=== PATIENT | female | born 1960 | race African-American/Black ===

== ENCOUNTER 2017-03-28 11:32 | Inpatient (IN) | payer OTHER ==
[2017-03-28 12:32] VITALS: BMI 29.2
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
[2017-03-28] MEDS ORDERED: NICOTINE POLACRILEX 4 MG GUM BUC PRN (14:24)
[2017-03-28] MEDS ORDERED: P-EPHED 60MG/TRIPROLIDI 2.5MG TABLET PO PRN (14:24)
[2017-03-28] MEDS ORDERED: guaiFENesin/D-METHORPHAN HB 10 ML UNIT-DOSE CUPS PO PRN (14:24)
[2017-03-28] MEDS ORDERED: ACETAMINOPHEN 325 MG TABLET (FP) PO PRN (14:24)
[2017-03-28] MEDS ORDERED: MAGNESIUM CITRATE 300 ML BOTTLE PO PRN (14:24)
[2017-03-28] MEDS ORDERED: MENTHOL/PHENOL 1 EACH UD MM PRN (14:24)
[2017-03-28] MEDS ORDERED: MAG HYDROX/AL HYDROX/SIMETH 30 ML UNIT-DOSE CUP PO PRN (14:24)
[2017-03-28] MEDS ORDERED: chlordiazePOXIDE HCL 25 MG CAPSULE PO PRN (14:24)
[2017-03-28] MEDS ORDERED: LOPERAMIDE HCL 2 MG CAPSULE PO PRN (14:24)
[2017-03-28] MEDS ORDERED: chlordiazePOXIDE HCL 25 MG CAPSULE PO ONE (15:07)
[2017-03-28 16:32] LABS: HEMATOCRIT 37.1 % (32.4-45.2); HEMOGLOBIN 12.6 GM/dL (10.7-15.3); MCH 32.7 pg (25.7-33.7); MCHC 33.9 g/dl (32.0-36.0); MEAN CELL VOLUME 96.4 fl (80-96); MEAN PLT VOLUME 10.1 fl (7.5-11.1); PLATELET COUNT 215 K/MM3 (134-434); RBC 3.85 M/mm3 (3.60-5.2); RDW 13.4 % (11.6-15.6); WHITE BLOOD COUNT 4.6 K/mm3 (4.0-10.0)
[2017-03-28 16:49] LABS: URINE APPEARANCE SLCLOUDY; URINE BILIRUBIN NEGATIVE (NEGATIVE); URINE BLOOD 1+ (NEGATIVE); URINE COLOR LTYELLOW; URINE GLUCOSE (UA) NEGATIVE (NEGATIVE); URINE KETONE NEGATIVE (NEGATIVE); URINE LEUK ESTERASE NEGATIVE (NEGATIVE); URINE NITRITE NEGATIVE (NEGATIVE); URINE PROTEIN NEGATIVE (NEGATIVE); URINE UROBILINOGEN NEGATIVE mg/dL (0.2-1.0)
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
[2017-03-28] MEDS: chlordiazePOXIDE HCL 25 MG CAPSULE PO SCH ×2 (17:25→22:35)
[2017-03-28] MEDS: LISINOPRIL 10 MG TABLET (FP) PO SCH (17:25)
[2017-03-28] MEDS: NICOTINE 21 MG/24 HOURS TOPICAL PATCH TD SCH (17:25)
[2017-03-28 17:28] LABS: CALCIUM OXALATE CRYSTALS RARE /hpf (NONE SEEN); EPI CELLS RARE /HPF (FEW); URINE BACTERIA RARE /hpf (NONE SEEN); URINE MUCUS RARE
[2017-03-28 20:10] LABS: ALBUMIN 3.5 g/dl (3.4-5.0); ANION GAP 7 (8-16); BLOOD UREA NITROGEN 27 mg/dL (7-18); CALCIUM 8.2 mg/dL (8.5-10.1); CHLORIDE 104 mmol/L (98-107); CO2 29 mmol/L (21-32); GLUCOSE,RANDOM 88 mg/dL (74-106); POTASSIUM 4.4 mmol/L (3.5-5.1); SODIUM 140 mmol/L (136-145)
[2017-03-28 20:14] LABS: ALK PHOS 73 U/L (45-117); BILIRUBIN,TOTAL 0.8 mg/dL (0.2-1.0); CREATININE 1.2 mg/dL (0.55-1.02); SGOT/AST 18 U/L (15-37); SGPT/ALT 28 U/L (12-78); TOT PROT 7.2 g/dl (6.4-8.2)
[2017-03-28] MEDS: THIAMINE HCL 100 MG TABLET (FP) PO SCH (22:35)
[2017-03-28] MEDS: NAPROXEN 500 MG TABLET (FP) PO PRN (22:35)
[2017-03-29] MEDS: chlordiazePOXIDE HCL 25 MG CAPSULE PO SCH ×4 (07:11→22:21)
--- NOTE | 2017-03-29 08:03 | EKG ---
Test Reason : Blood Pressure : / mmHG Vent. Rate : 069 BPM Atrial Rate : 069 BPM P-R Int : 200 ms QRS Dur : 096 ms QT Int : 436 ms P-R-T Axes : 059 063 072 degrees QTc Int : 467 ms NORMAL SINUS RHYTHM NORMAL ECG WHEN COMPARED WITH ECG OF 24-JAN-2015 08:28, NO SIGNIFICANT CHANGE WAS FOUND Confirmed by ALFREDITO ARAGON MD ([id number]) on 03/29/2017 8:03:19 AM Referred By: Confirmed By:ALFREDITO ARAGON MD
[2017-03-29] MEDS: METHADONE HCL 40 MG DISPERSABLE TABLET PO SCH (09:07)
--- NOTE | 2017-03-29 10:00 | PN ---
[facility] CIWA - CIWA Score Nausea/Vomitin-Mild Nausea/No Vomiting Muscle Tremors: 4-Moderate,w/Arms Extend Anxiety: 4-Mod. Anxious/Guarded Agitation: 4-Moderately Restless Paroxysmal Sweats: 1-Minimal Palms Moist Orientation: 0-Oriented Tacttile Disturbances: 0-None Auditory Disturbances: 0-None Visual Disturbances: 0-None Headache: 0-None Present CIWA-Ar Total Score: 14 BHS Progress Note (SOAP) Subjective: tremor anxiety sweat agitation Objective: 03/29/17 09:59 Vital Signs Temperature 98 F 03/29/17 06:24 Pulse Rate 66 03/29/17 06:24 Respiratory Rate 16 03/29/17 06:24 Blood Pressure 152/84 03/29/17 06:24 O2 Sat by Pulse Oximetry (%) Laboratory Last Values WBC 4.6 K/mm3 (4.0-10.0) D 03/28/17 14:30 RBC 3.85 M/mm3 (3.60-5.2) 03/28/17 14:30 Hgb 12.6 GM/dL (10.7-15.3) 03/28/17 14:30 Hct 37.1 % (32.4-45.2) 03/28/17 14:30 MCV 96.4 fl (80-96) H 03/28/17 14:30 MCH 32.7 pg (25.7-33.7) 03/28/17 14:30 MCHC 33.9 g/dl (32.0-36.0) 03/28/17 14:30 RDW 13.4 % (11.6-15.6) 03/28/17 14:30 Plt Count 215 K/MM3 (134-434) 03/28/17 14:30 MPV 10.1 fl (7.5-11.1) 03/28/17 14:30 Sodium 140 mmol/L (136-145) 03/28/17 14:30 Potassium 4.4 mmol/L (3.5-5.1) 03/28/17 14:30 Chloride 104 mmol/L (98-107) 03/28/17 14:30 Carbon Dioxide 29 mmol/L (21-32) 03/28/17 14:30 Anion Gap 7 (8-16) L 03/28/17 14:30 BUN 27 mg/dL (7-18) H 03/28/17 14:30 Creatinine 1.2 mg/dL (0.55-1.02) H 03/28/17 14:30 Creat Clearance w eGFR 46.64 (>60) 03/28/17 14:30 Random Glucose 88 mg/dL (74-106) 03/28/17 14:30 Calcium 8.2 mg/dL (8.5-10.1) L 03/28/17 14:30 Total Bilirubin 0.8 mg/dL (0.2-1.0) D 03/28/17 14:30 AST 18 U/L (15-37) 03/28/17 14:30 ALT 28 U/L (12-78) 03/28/17 14:30 Alkaline Phosphatase 73 U/L (45-117) 03/28/17 14:30 Total Protein 7.2 g/dl (6.4-8.2) 03/28/17 14:30 Albumin 3.5 g/dl (3.4-5.0) 03/28/17 14:30 Urine Color Ltyellow 03/28/17 15:30 Urine Appearance Slcloudy 03/28/17 15:30 Urine pH 5.0 (5.0-8.0) D 03/28/17 15:30 Ur Specific [place] 1.015 (1.001-1.035) 03/28/17 15:30 Urine Protein Negative (NEGATIVE) 03/28/17 15:30 Urine Glucose (UA) Negative (NEGATIVE) 03/28/17 15:30 Urine Ketones Negative (NEGATIVE) 03/28/17 15:30 Urine Blood 1+ (NEGATIVE) H 03/28/17 15:30 Urine Nitrite Negative (NEGATIVE) 03/28/17 15:30 Urine Bilirubin Negative (NEGATIVE) 03/28/17 15:30 Urine Urobilinogen Negative mg/dL (0.2-1.0) 03/28/17 15:30 Ur Leukocyte Esterase Negative (NEGATIVE) 03/28/17 15:30 Urine WBC (Auto) 1 /hpf (3-5) 03/28/17 15:30 Urine RBC (Auto) 2 /hpf (0-3) 03/28/17 15:30 Ur Epithelial Cells Rare /HPF (FEW) 03/28/17 15:30 Calcium Oxalate Crystal Rare /hpf (NONE SEEN) 03/28/17 15:30 Urine Bacteria Rare /hpf (NONE SEEN) 03/28/17 15:30 Urine Mucus Rare 03/28/17 15:30 RPR Titer Nonreactive (NONREACTIVE) 03/28/17 14:30 lab noted Assessment: 03/29/17 09:59 withdrawal sx Plan: continue detox
[2017-03-29] MEDS: cloNIDine HCL 0.1 MG TABLET PO SCH (10:56)
[2017-03-29] MEDS: LISINOPRIL 10 MG TABLET (FP) PO SCH (10:56)
[2017-03-29] MEDS: PRENATAL VITAMINS W/ FOLIC ACID TABLET (FP) PO SCH (10:56)
[2017-03-29] MEDS: NICOTINE 21 MG/24 HOURS TOPICAL PATCH TD SCH (10:57)
[2017-03-29] MEDS: MAGNESIUM HYDROX 2400MG/30ML ORAL SUSPENSION 30 ML CUP PO PRN (18:08)
[2017-03-29] MEDS: NAPROXEN 500 MG TABLET (FP) PO PRN (22:21)
[2017-03-29] MEDS: THIAMINE HCL 100 MG TABLET (FP) PO SCH (22:21)
[2017-03-30] MEDS: METHADONE HCL 40 MG DISPERSABLE TABLET PO SCH (05:50)
[2017-03-30] MEDS: chlordiazePOXIDE HCL 25 MG CAPSULE PO SCH ×2 (05:50→10:39)
--- NOTE | 2017-03-30 09:20 | PN ---
[facility] CIWA - CIWA Score Nausea/Vomitin-No Nausea/No Vomiting Muscle Tremors: 3 Anxiety: 3 Agitation: 3 Paroxysmal Sweats: 1-Minimal Palms Moist Orientation: 0-Oriented Tacttile Disturbances: 0-None Auditory Disturbances: 0-None Visual Disturbances: 0-None Headache: 0-None Present CIWA-Ar Total Score: 10 S Progress Note (SOAP) Subjective: [id number] anxiety sweat constipation Objective: 03/30/17 09:18 Vital Signs Temperature 97.0 F L 03/30/17 06:00 Pulse Rate 66 03/30/17 06:00 Respiratory Rate 18 03/30/17 06:00 Blood Pressure 138/80 03/30/17 06:00 O2 Sat by Pulse Oximetry (%) Laboratory Last Values WBC 4.6 K/mm3 (4.0-10.0) D 03/28/17 14:30 RBC 3.85 M/mm3 (3.60-5.2) 03/28/17 14:30 Hgb 12.6 GM/dL (10.7-15.3) 03/28/17 14:30 Hct 37.1 % (32.4-45.2) 03/28/17 14:30 MCV 96.4 fl (80-96) H 03/28/17 14:30 MCH 32.7 pg (25.7-33.7) 03/28/17 14:30 MCHC 33.9 g/dl (32.0-36.0) 03/28/17 14:30 RDW 13.4 % (11.6-15.6) 03/28/17 14:30 Plt Count 215 K/MM3 (134-434) 03/28/17 14:30 MPV 10.1 fl (7.5-11.1) 03/28/17 14:30 Sodium 140 mmol/L (136-145) 03/28/17 14:30 Potassium 4.4 mmol/L (3.5-5.1) 03/28/17 14:30 Chloride 104 mmol/L (98-107) 03/28/17 14:30 Carbon Dioxide 29 mmol/L (21-32) 03/28/17 14:30 Anion Gap 7 (8-16) L 03/28/17 14:30 BUN 27 mg/dL (7-18) H 03/28/17 14:30 Creatinine 1.2 mg/dL (0.55-1.02) H 03/28/17 14:30 Creat Clearance w eGFR 46.64 (>60) 03/28/17 14:30 Random Glucose 88 mg/dL (74-106) 03/28/17 14:30 Calcium 8.2 mg/dL (8.5-10.1) L 03/28/17 14:30 Total Bilirubin 0.8 mg/dL (0.2-1.0) D 03/28/17 14:30 AST 18 U/L (15-37) 03/28/17 14:30 ALT 28 U/L (12-78) 03/28/17 14:30 Alkaline Phosphatase 73 U/L (45-117) 03/28/17 14:30 Total Protein 7.2 g/dl (6.4-8.2) 03/28/17 14:30 Albumin 3.5 g/dl (3.4-5.0) 03/28/17 14:30 Urine Color Ltyellow 03/28/17 15:30 Urine Appearance Slcloudy 03/28/17 15:30 Urine pH 5.0 (5.0-8.0) D 03/28/17 15:30 Ur Specific [place] 1.015 (1.001-1.035) 03/28/17 15:30 Urine Protein Negative (NEGATIVE) 03/28/17 15:30 Urine Glucose (UA) Negative (NEGATIVE) 03/28/17 15:30 Urine Ketones Negative (NEGATIVE) 03/28/17 15:30 Urine Blood 1+ (NEGATIVE) H 03/28/17 15:30 Urine Nitrite Negative (NEGATIVE) 03/28/17 15:30 Urine Bilirubin Negative (NEGATIVE) 03/28/17 15:30 Urine Urobilinogen Negative mg/dL (0.2-1.0) 03/28/17 15:30 Ur Leukocyte Esterase Negative (NEGATIVE) 03/28/17 15:30 Urine WBC (Auto) 1 /hpf (3-5) 03/28/17 15:30 Urine RBC (Auto) 2 /hpf (0-3) 03/28/17 15:30 Ur Epithelial Cells Rare /HPF (FEW) 03/28/17 15:30 Calcium Oxalate Crystal Rare /hpf (NONE SEEN) 03/28/17 15:30 Urine Bacteria Rare /hpf (NONE SEEN) 03/28/17 15:30 Urine Mucus Rare 03/28/17 15:30 RPR Titer Nonreactive (NONREACTIVE) 03/28/17 14:30 lab noted Assessment: 03/30/17 09:19 withdrawal sx constipation Plan: colace 100 mg tid senna II tab hs continue detox
[2017-03-30] MEDS: DOCUSATE SODIUM 100 MG CAPSULE (FP) PO SCH ×3 (10:37→22:26)
[2017-03-30] MEDS: PRENATAL VITAMINS W/ FOLIC ACID TABLET (FP) PO SCH (10:37)
[2017-03-30] MEDS: LISINOPRIL 10 MG TABLET (FP) PO SCH (10:38)
[2017-03-30] MEDS: cloNIDine HCL 0.1 MG TABLET PO SCH (10:38)
[2017-03-30] MEDS: NICOTINE 21 MG/24 HOURS TOPICAL PATCH TD SCH (10:39)
[2017-03-30 11:48] LABS: SICKLE CELL SCREEN NEGATIVE (NEGATIVE)
[2017-03-30] MEDS: MAGNESIUM HYDROX 2400MG/30ML ORAL SUSPENSION 30 ML CUP PO PRN (15:12)
[2017-03-30] MEDS: chlordiazePOXIDE 5 MG CAPSULE PO SCH ×2 (16:49→22:26)
[2017-03-30] MEDS: NAPROXEN 500 MG TABLET (FP) PO PRN (22:26)
[2017-03-30] MEDS: SENNOSIDES 8.6MG TABLET (FP) PO SCH (22:26)
[2017-03-30] MEDS: THIAMINE HCL 100 MG TABLET (FP) PO SCH (22:26)
[2017-03-31] MEDS: chlordiazePOXIDE 5 MG CAPSULE PO SCH ×2 (05:55→10:34)
[2017-03-31] MEDS: METHADONE HCL 40 MG DISPERSABLE TABLET PO SCH (05:55)
[2017-03-31] MEDS: DOCUSATE SODIUM 100 MG CAPSULE (FP) PO SCH ×3 (05:55→22:25)
[2017-03-31] MEDS: LISINOPRIL 10 MG TABLET (FP) PO SCH (10:35)
[2017-03-31] MEDS: NICOTINE 21 MG/24 HOURS TOPICAL PATCH TD SCH (10:36)
[2017-03-31] MEDS: PRENATAL VITAMINS W/ FOLIC ACID TABLET (FP) PO SCH (10:36)
[2017-03-31] MEDS: cloNIDine HCL 0.1 MG TABLET PO SCH (10:36)
--- NOTE | 2017-03-31 14:18 | PN ---
BHS Progress Note (SOAP) Subjective: ALERT,IRRITABLE,INTERRUPTED SLEEP,PAIN IN THE BODY Objective: 03/31/17 14:17 Vital Signs Temperature 96.3 F L 03/31/17 10:19 Pulse Rate 71 03/31/17 10:19 Respiratory Rate 18 03/31/17 10:19 Blood Pressure 137/79 03/31/17 10:19 O2 Sat by Pulse Oximetry (%) Assessment: 03/31/17 14:17 WITHDRAWAL SYMPTOM Plan: CONTINUE DETOX
[2017-03-31] MEDS: chlordiazePOXIDE HCL 10 MG CAPSULE PO SCH ×2 (17:24→22:25)
[2017-03-31] MEDS: SENNOSIDES 8.6MG TABLET (FP) PO SCH (22:25)
[2017-03-31] MEDS: THIAMINE HCL 100 MG TABLET (FP) PO SCH (22:25)
[2017-04-01] MEDS: chlordiazePOXIDE HCL 10 MG CAPSULE PO SCH ×2 (05:46→10:43)
[2017-04-01] MEDS: METHADONE HCL 40 MG DISPERSABLE TABLET PO SCH (05:46)
[2017-04-01] MEDS: DOCUSATE SODIUM 100 MG CAPSULE (FP) PO SCH ×3 (05:46→23:11)
--- NOTE | 2017-04-01 09:08 | PN ---
S Progress Note (SOAP) Subjective: ALERT,IRRITABLE,INTERRUPTED SLEEP Objective: 04/01/17 09:07 Vital Signs Temperature 98 F 04/01/17 06:37 Pulse Rate 70 04/01/17 06:37 Respiratory Rate 18 04/01/17 06:37 Blood Pressure 145/76 04/01/17 06:37 O2 Sat by Pulse Oximetry (%) Assessment: 04/01/17 09:07 WITHDRAWAL SYMPTOM Plan: CONTINUE DETOX,DISCHARGE IN AM
[2017-04-01] MEDS: PRENATAL VITAMINS W/ FOLIC ACID TABLET (FP) PO SCH (10:43)
[2017-04-01] MEDS: NICOTINE 21 MG/24 HOURS TOPICAL PATCH TD SCH (10:43)
[2017-04-01] MEDS: cloNIDine HCL 0.1 MG TABLET PO SCH (10:43)
[2017-04-01] MEDS: LISINOPRIL 10 MG TABLET (FP) PO SCH (10:43)
[2017-04-01] MEDS: THIAMINE HCL 100 MG TABLET (FP) PO SCH (23:12)
[2017-04-01] MEDS: SENNOSIDES 8.6MG TABLET (FP) PO SCH (23:12)
[2017-04-02] MEDS: METHADONE HCL 40 MG DISPERSABLE TABLET PO SCH (05:53)
[2017-04-02] MEDS: DOCUSATE SODIUM 100 MG CAPSULE (FP) PO SCH (05:53)
[2017-04-02 06:43] VITALS: BP 150/82; PULSE 64; TEMP 97.2
[2017-04-02] MEDS: cloNIDine HCL 0.1 MG TABLET PO SCH (09:36)
[2017-04-02] MEDS: LISINOPRIL 10 MG TABLET (FP) PO SCH (09:36)
[2017-04-02] MEDS: PRENATAL VITAMINS W/ FOLIC ACID TABLET (FP) PO SCH (09:36)
--- NOTE | 2017-04-02 11:03 | DS ---
[facility] Detox Discharge Summary Admission Date: 03/28/17 - History Present History: Alcohol Dependence - Physical Exam Results Vital Signs: Vital Signs Temperature 97.2 F L 04/02/17 06:42 Pulse Rate 64 04/02/17 06:42 Respiratory Rate 16 04/02/17 06:42 Blood Pressure 150/82 04/02/17 06:42 O2 Sat by Pulse Oximetry (%) Pertinent Admission Physical Exam Findings: withdrawal sx Vital Signs Temperature 97.2 F L 04/02/17 06:42 Pulse Rate 64 04/02/17 06:42 Respiratory Rate 16 04/02/17 06:42 Blood Pressure 150/82 04/02/17 06:42 O2 Sat by Pulse Oximetry (%) Laboratory Last Values WBC 4.6 K/mm3 (4.0-10.0) D 03/28/17 14:30 RBC 3.85 M/mm3 (3.60-5.2) 03/28/17 14:30 Hgb 12.6 GM/dL (10.7-15.3) 03/28/17 14:30 Hct 37.1 % (32.4-45.2) 03/28/17 14:30 MCV 96.4 fl (80-96) H 03/28/17 14:30 MCH 32.7 pg (25.7-33.7) 03/28/17 14:30 MCHC 33.9 g/dl (32.0-36.0) 03/28/17 14:30 RDW 13.4 % (11.6-15.6) 03/28/17 14:30 Plt Count 215 K/MM3 (134-434) 03/28/17 14:30 MPV 10.1 fl (7.5-11.1) 03/28/17 14:30 Sickle Cell Screen Negative (NEGATIVE) 03/28/17 14:30 Sodium 140 mmol/L (136-145) 03/28/17 14:30 Potassium 4.4 mmol/L (3.5-5.1) 03/28/17 14:30 Chloride 104 mmol/L (98-107) 03/28/17 14:30 Carbon Dioxide 29 mmol/L (21-32) 03/28/17 14:30 Anion Gap 7 (8-16) L 03/28/17 14:30 BUN 27 mg/dL (7-18) H 03/28/17 14:30 Creatinine 1.2 mg/dL (0.55-1.02) H 03/28/17 14:30 Creat Clearance w eGFR 46.64 (>60) 03/28/17 14:30 Random Glucose 88 mg/dL (74-106) 03/28/17 14:30 Calcium 8.2 mg/dL (8.5-10.1) L 03/28/17 14:30 Total Bilirubin 0.8 mg/dL (0.2-1.0) D 03/28/17 14:30 AST 18 U/L (15-37) 03/28/17 14:30 ALT 28 U/L (12-78) 03/28/17 14:30 Alkaline Phosphatase 73 U/L (45-117) 03/28/17 14:30 Total Protein 7.2 g/dl (6.4-8.2) 03/28/17 14:30 Albumin 3.5 g/dl (3.4-5.0) 03/28/17 14:30 Urine Color Ltyellow 03/28/17 15:30 Urine Appearance Slcloudy 03/28/17 15:30 Urine pH 5.0 (5.0-8.0) D 03/28/17 15:30 Ur Specific [place] 1.015 (1.001-1.035) 03/28/17 15:30 Urine Protein Negative (NEGATIVE) 03/28/17 15:30 Urine Glucose (UA) Negative (NEGATIVE) 03/28/17 15:30 Urine Ketones Negative (NEGATIVE) 03/28/17 15:30 Urine Blood 1+ (NEGATIVE) H 03/28/17 15:30 Urine Nitrite Negative (NEGATIVE) 03/28/17 15:30 Urine Bilirubin Negative (NEGATIVE) 03/28/17 15:30 Urine Urobilinogen Negative mg/dL (0.2-1.0) 03/28/17 15:30 Ur Leukocyte Esterase Negative (NEGATIVE) 03/28/17 15:30 Urine WBC (Auto) 1 /hpf (3-5) 03/28/17 15:30 Urine RBC (Auto) 2 /hpf (0-3) 03/28/17 15:30 Ur Epithelial Cells Rare /HPF (FEW) 03/28/17 15:30 Calcium Oxalate Crystal Rare /hpf (NONE SEEN) 03/28/17 15:30 Urine Bacteria Rare /hpf (NONE SEEN) 03/28/17 15:30 Urine Mucus Rare 03/28/17 15:30 RPR Titer Nonreactive (NONREACTIVE) 03/28/17 14:30 lab noted - Treatment Hospital Course: Detox Protocol Followed, Detoxed Safely, Responded well, Discharged Condition Good, Rehab Referral Accepted Patient has Accepted a Rehab Referral to: as per counselor arranged - Medication Discharge Medications: Ambulatory Orders Clonidine HCl 0.3 mg PO DAILY 01/24/15 Lisinopril 10 mg PO DAILY 01/24/15 Naproxen [Naprosyn] 500 mg PO BID PRN #10 tablet 01/24/15 - Diagnosis (1) Alcohol dependence with uncomplicated withdrawal Status: Acute (2) Hypertension Status: Chronic Qualifiers: Hypertension type: essential hypertension Qualified Code(s): I10 - Essential (primary) hypertension - AMA Did Patient Leave Against Medical Advice: No
== END 2017-04-02 09:40 | disposition home or self-care (01) | DRG 773 ==
LOC: YASAS 11:32 → Y6N 14:51
PROVIDERS: ADMIT Internal Medicine; ATTEND Internal Medicine
PROC: HZ2ZZZZ Detoxification Services for Substance Abuse Treatment (ICD-10-PCS; principal; 2017-03-28)
DX: F10.230 Alcohol dependence with withdrawal, uncomplicated (principal); F11.20 Opioid dependence, uncomplicated; F14.20 Cocaine dependence, uncomplicated; F17.210 Nicotine dependence, cigarettes, uncomplicated; F19.24 Other psychoactive substance dependence with psychoactive substance-induced mood disorder; F31.9 Bipolar disorder, unspecified; M12.9 Arthropathy, unspecified; R76.11 Nonspecific reaction to tuberculin skin test without active tuberculosis; R26.2 Difficulty in walking, not elsewhere classified; Z99.89 Dependence on other enabling machines and devices
CPT/HCPCS: 36415; 71046-TC-FY; 80053; 81003; 81015; 85027; 85660; 86593; 93005; 93010; J0735